=== PATIENT | male | born 1975 | race Caucasian/White ===

== ENCOUNTER 2016-09-24 16:21 | Emergency (ER) | payer BC ==
[2016-09-24] MEDS ORDERED: Gelfoam 12-7 ADSORBABL SPONGE* 1 EA SPONGE ONE (16:57)
[2016-09-24 17:21] VITALS: BP 148/89
--- NOTE | 2016-09-24 23:53 | ED ---
IK[place],Main, scribed for Ben Harding MD on 09/24/16 at 1755 . Throat Pain/Nasal Congestion - HPI Summary HPI Summary: This 41 y/o male presents to ED for gradually worsening gum bleeding at upper left jaw. Pt reports routine dental cleaning a week ago, and mild blood noted then. Bleeding continues to persist and gradually worsen even though pt discontinued his daily ASA 2 days ago. Now pt is going through a number of gauze in a day. Pt has hx of plavix tx but has not taken it since 2 years ago. PMHx includes CAD s/p stent placement. - History of Current Complaint Chief Complaint: EDDentalPain Time Seen by Provider: 09/24/16 16:40 Hx Obtained From: Patient, Medical Records Onset/Duration: Gradual Onset Associated Signs And Symptoms: Positive: Negative - Allergies/Home Medications Allergies/Adverse Reactions: Allergies Allergy/AdvReac Type Severity Reaction Status Date / Time Latex Allergy Mild Rash Verified 09/24/16 16:36 Statins AdvReac Intermediate Muscle Ache Verified 09/24/16 16:36 PMH/Surg Hx/FS Hx/Imm Hx Endocrine/Hematology History: Reports: Hx Anticoagulant Therapy - asa daily Denies: Hx Blood Disorders, Hx Blood Transfusions, Hx Bone Marrow Disease, Hx Diabetes, Hx Systemic Lupus Erythematosus, Hx Sickle Cell Disease, Hx Thyroid Disease, Hx Anemia, Hx Unexplained Bleeding, Other Endocrine/ Hematological Disorders Cardiovascular History: Reports: Hx Angioplasty - no actual angioplasty but PCI with stent placement., Hx Coronary Artery Disease, Hx Hypercholesterolemia Denies: Hx Aneurysm, Hx Angina, Hx Auto Implanted Cardiovert Defib, Hx Cardiac Arrest, Hx Cardiomegaly, Hx Congenital Heart Disease, Hx Congestive Heart Failure, Hx Deep Vein Thrombosis, Hx Hypotension, Hx Hypertension, Hx Pacemaker/ICD, Hx Peripheral Vascular Disease, Hx Rheumatic Fever, Hx Syncope, Hx Valvular Heart Disease, Other Cardiovascular Problems/Disorders Respiratory History: Denies: Hx Asthma, Hx Chronic Obstructive Pulmonary Disease (COPD) GI History: Denies: Hx Cirrhosis, Hx Crohn's Disease, Hx Diverticulosis, Hx Gall Bladder Disease, Hx Gastroesophageal Reflux Disease, Hx Gastrointestinal Bleed, Hx Irritable Bowel, Hx Jaundice, Hx Obstructive Bowel, Hx Ileostomy, Hx Pyloric Stenosis, Hx Ulcer, Other GI Disorders - HAD COLONOSCOPY IN 2011 History: Denies: Hx Renal Disease Musculoskeletal History: Reports: Other Musculoskeletal History - 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 Denies: Hx Arthritis, Hx Rheumatoid Arthritis, Hx Back Problems, Hx Bursitis , Hx Congenital Bone Abnormalities, Hx Fibromyalgia, Hx Gout, Hx Orthopedic Injury, Hx Osteoporosis, Hx Scoliosis, Hx Tendonitis Sensory History: Denies: Hx Hearing Aid, Other Sensory Impairments Opthamlomology History: Denies: Other Sensory Impairments Neurological History: Denies: Hx Dementia, Hx Headaches, Hx Seizures, Hx Transient Ischemic Attacks (TIA) Psychiatric History: Denies: Hx Panic Disorder, Other Psychiatric Issues/Disorders - Cancer History Cancer Type, Location and Year: 2011 MELENOMA REMOVAL ON HEAD Hx Chemotherapy: No Hx Radiation Therapy: No - Surgical History Surgery Procedure, Year, and Place: 2011 [place]ONOSCOPY[place] [place]. 1991 EXPLORITORY LAP WITH APPENDECTOMY AT [facility]. 2011 MELONOMA REMOVAL ON HEAD. 09/25 CARDIAC CATH STENT PLACEMENT Hx Anesthesia Reactions: No - Immunization History Date of Tetanus Vaccine: current Date of Influenza Vaccine: 05/2015 Infectious Disease History: No Infectious Disease History: Denies: Hx Clostridium Difficile, Hx Hepatitis, Hx Human Immunodeficiency Virus (HIV), Hx of Known/Suspected MRSA, Hx Shingles, Hx Tuberculosis, Traveled Outside the [place] in Last 30 Days - Family History Known Family History: Positive: Cardiac Disease - Social History Alcohol Use: Rare Alcohol Amount: 3-4 times a year Substance Use Type: Reports: None Smoking Status (MU): Never Smoked Tobacco Review of Systems Negative: Fever Positive: Other - whoozing blood at left upper gum All Other Systems Reviewed And Are Negative: Yes Physical Exam - Summary Physical Exam Summary: General: Comfortable, pleasant, alert HEENT: Moist mucosa. Dental: Continuously whoozing gum at left upper gum between two molars. Negative abscess, ulceration, or fluctuance. Neck: soft, supple, no super clavicle adenopathy, no edema Heart: S1, S2, RRR, no murmurs, rubs, or gallops Lungs: Clear to auscultation, breathing comfortable, no wheezes or rales Abdominal: Soft, flat, nontender Extremities: No edema, no calf tenderness Neuro: Alert and oriented x 3 Psych: Logical, coherent Triage Information Reviewed: Yes Vital Signs On Initial Exam: Initial Vitals Temp Pulse Resp BP Pulse Ox 97.8 F 56 16 141/90 99 09/24/16 16:28 09/24/16 16:28 09/24/16 16:28 09/24/16 16:28 09/24/16 16:28 Vital Signs Reviewed: Yes Diagnostics - Vital Signs Vital Signs Temp Pulse Resp BP Pulse Ox 09/24/16 16:28 97.8 F 56 16 141/90 99 - Laboratory Lab Statement: Any lab studies that have been ordered have been reviewed, and results considered in the medical decision making process. EENT Course/Dx - Course Assessment/Plan: He presents to ED for whoozing blood at left upper jaw after routine dental cleaning. Pt stopped his daily ASA 2 days ago, but bleeding persists. Upon exam there is no sign of abscess, ulceration, and fluctuance. Gel foam was applied to stop the whoozing blood. - Diagnoses Provider Diagnoses: Gums, bleeding Discharge - Discharge Plan Condition: Good Disposition: HOME Patient Education Materials: Bleeding Disorders (ED) Referrals: Husam Tobias NP [Primary Care Provider] - Additional Instructions: Please follow up with your dentist in the next 1-2 days. The documentation as recorded by the [place] wall [employer] accurately reflects the service I personally performed and the decisions made by me, Ben Harding MD.
== END 2016-09-24 17:20 | disposition home or self-care (01) ==
LOC: ED 16:21
DX: K06.8 Other specified disorders of gingiva and edentulous alveolar ridge (principal)
CPT/HCPCS: 99282; A9270-GY

== ENCOUNTER 2017-03-29 09:23 | Emergency (ER) | payer BC ==
[2017-03-29 10:38] VITALS: BP 144/90
--- NOTE | 2017-03-29 11:20 | RAD ---
INDICATION: Left ankle injury COMPARISON: None TECHNIQUE: AP, lateral, and oblique views were obtained. FINDINGS: There is no acute fracture or dislocation. There is moderate lateral soft tissue swelling. IMPRESSION: LATERAL SOFT TISSUE SWELLING.
--- NOTE | 2017-03-29 12:24 | UC ---
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 WAS UNABLE TO BEAR WEIGHT LAST NIGHT. SWELLING TO LATERAL ANKLE. PAIN AND INSTABILITY CONTINUE WITH WEIGHT BEARING. - History of Current Complaint Chief Complaint: UCLowerExtremity Stated Complaint: LEFT ANKLE INJURY Time Seen by Provider: 03/29/17 10:44 Hx Obtained From: Patient Onset/Duration: Sudden Onset, Lasting Days, Still Present Severity Initially: Mild Severity Currently: Mild Pain Intensity: 2 Pain Scale Used: 0-10 Numeric Aggravating Factor(s): Standing, Ambulation Alleviating Factor(s): Rest, Elevation Able to Bear Weight: No - Risk Factors Gout Risk Factors: Negative DVT Risk Factors: Negative Septic Arthritis Risk Factor: Negative - Allergies/Home Medications Allergies/Adverse Reactions: Allergies Allergy/AdvReac Type Severity Reaction Status Date / Time Latex Allergy Mild Rash Verified 03/29/17 10:38 Statins AdvReac Intermediate Muscle Ache Verified 03/29/17 10:38 PMH/Surg Hx/FS Hx/Imm Hx Previously Healthy: Yes Other History Of: Anticoagulant Therapy - asa daily - Surgical History Surgical History: Yes Surgery Procedure, Year, and Place: [place] [place] EXPLORITORY LAP WITH APPENDECTOMY AT [facility]. 2011 MELONOMA REMOVAL ON HEAD. 09/25 CARDIAC CATH STENT PLACEMENT - Family History Known Family History: Positive: Cardiac Disease - Social History Occupation: Employed Full-time Lives: With Family Alcohol Use: Rare Alcohol Amount: 3-4 times a year Substance Use Type: None Smoking Status (MU): Never Smoked Tobacco - Immunization History Most Recent Tetanus Shot: 2010 Review of Systems Constitutional: Negative Skin: Negative Eyes: Negative ENT: Negative Respiratory: Negative Cardiovascular: Negative Gastrointestinal: Negative Genitourinary: Negative Motor: Negative Neurovascular: Negative Musculoskeletal: Arthralgia, Edema - LEFT ANKLE, Myalgia Neurological: Negative Psychological: Negative All Other Systems Reviewed And Are Negative: Yes Physical Exam Triage Information Reviewed: Yes Appearance: Well-Appearing, No Pain Distress, Well-Nourished Vital Signs: Initial Vital Signs Temp 97.7 F 03/29/17 10:34 Pulse 62 03/29/17 10:34 Resp 14 03/29/17 10:34 BP 144/90 03/29/17 10:34 Pulse Ox 95 08/17/17 10:34 Vital Signs Reviewed: Yes Eye Exam: Normal ENT Exam: Normal ENT: Positive: Normal ENT inspection, TMs normal Dental Exam: Normal Neck exam: Normal Neck: Positive: Supple, Nontender, No Lymphadenopathy Respiratory Exam: Normal Respiratory: Positive: Chest non-tender, Lungs clear, Normal breath sounds, No respiratory distress Cardiovascular Exam: Normal Cardiovascular: Positive: RRR, No Murmur, Pulses Normal, Brisk Capillary Refill Abdominal Exam: Normal Musculoskeletal Exam: Normal Musculoskeletal: Positive: Strength Limited @ - LEFT ANKLE, ROM Limited @ - LEFT ANKLE, Edema @ - LEFT ANKLE, Other: - NO LATERAL LEG TENDERNESS; NO FOOT TENDERNESS Neurological Exam: Normal Psychological Exam: Normal Skin Exam: Normal Lower Extremity Course/Dx - Differential Dx/Diagnosis Differential Diagnosis/HQI/PQRI: Contusion, Fracture (Closed), Infection, Sprain , Strain Provider Diagnoses: LEFT ANKLE SPRAIN Discharge - Discharge Plan Condition: Stable Disposition: HOME Patient Education Materials: Ankle Sprain (ED) Forms: *Work Release Referrals: Elmo Craft MD [Medical Doctor] - Husam Tobias NP [Primary Care Provider] - Additional Instructions: PHYSICAL THERAPY REFERRAL: You have been prescribed physical therapy. Treatments may include stretching, exercise, application of heat or cold, and other modalities. After an injury, PT can reduce swelling and pain. In recovery, PT is used to restore mobility and strength. Your specific treatment goals are: ___X__ Reduction of Swelling (EGS, US, ice as needed) _X____ Pain Reduction (EGS, US, ice as needed) TENS Pack Fitting and Instruction Wound Hydrotherapy ___X__ Preservation of Mobility ___X__ Tenriism of Mobility ___X__ Strength Tenriism ___X__ Work or Sports Hardening This instruction sheet also serves as your PHYSICAL THERAPY REFERRAL! Please take it with you to the therapist, so he/she will be aware of your diagnosis and treatment plan. You may see the physical therapist of your choice for these treatments, but may wish to check with your insurance to be sure the provider you select is covered. It's important to see the doctor to whom you have been referred for follow up.
== END 2017-03-29 11:48 | disposition home or self-care (01) ==
LOC: UCCORT 09:23
DX: S93.402A Sprain of unspecified ligament of left ankle, initial encounter (principal); X50.1XXA Overexertion from prolonged static or awkward postures, initial encounter; Y93.75 Activity, martial arts; Y92.9 Unspecified place or not applicable; Z79.82 Long term (current) use of aspirin; Z95.5 Presence of coronary angioplasty implant and graft
CPT/HCPCS: 99213; G0463